=== PATIENT | female | born 1995 | race Two or more races ===

== ENCOUNTER 2023-09-09 13:37 | Inpatient (IN) | payer BC ==
[2023-09-09] MEDS ORDERED: Ondansetron PF 4 MG/2 ML Vial ONE (13:42)
[2023-09-09 14:46] LABS: #Eosinphils 0.1 thou/uL (0.0-0.7); #Monocytes 0.5 thou/uL (0.11-0.59); #Neutrophils 3.8 thou/uL (1.40-6.50); %Basophils 0.4 % (0.0-1.0); %Eosinophils 0.7 % (0.0-10.0); %Lymphocytes 39.6 % (21.0-51.0); %Monocytes 6.3 % (0.0-10.0); %Neutrophils 52.7 % (42.0-75.0); Hematocrit 40.3 % (36.0-47.0); Hemoglobin 13.6 g/dL (12.0-16.0); Mean Corpuscular HGB CONC 33.7 g/dL (32.0-36.0); Mean Corpuscular Hemoglobin 31.3 pg (27.0-31.0); Mean Corpuscular Volume 92.6 fl (78.0-98.0); Mean Platelet Volume 9.9 fL (7.4-10.4); Platelet Count 282 10x3/uL (130-400); Red Blood Cell (RBC) Count 4.35 mill/uL (4.20-5.40); White Blood Cell (WBC) Count 7.1 10x3/uL (4.8-10.8)
[2023-09-09 15:19] LABS: ALT (SGPT) 10 U/L (8-55); AST (SGOT) 13 U/L (5-34); Albumin 4.5 g/dL (3.5-5.0); Alkaline Phosphatase 43 U/L (40-110); Anion Gap 19 mmol/L (10-20); BUN (Urea Nitrogen) 11 mg/dL (7.0-18.7); Bilirubin, Total 0.3 mg/dL (0.2-1.2); Calc. Creatinine Clearance 0 mL/min (70-130); Calcium 8.9 mg/dL (7.8-10.44); Carbon Dioxide 18 mmol/L (22-29); Chloride 105 mmol/L (98-107); Estimated GFR 103; Globulin 2.7 g/dL (2.4-3.5); Glucose 96 mg/dL (70-105); Potassium 3.6 mmol/L (3.5-5.1); Protein, Total 7.2 g/dL (6.0-8.3); Sodium 138 mmol/L (136-145)
[2023-09-09] MEDS ORDERED: Lidocaine 1% PF 5 ML VIAL ONE (15:26)
[2023-09-09] MEDS ORDERED: Boostrix 0.5 ML (Tdap) VIAL (>/=7 yrs of age) ONE (15:26)
[2023-09-09 15:51] LABS: BHCG - Serum Negative (NEGATIVE); Pregs Control Background? CLEAR/WHITE (CLR/WHITE); Pregs Control Bar Appear? YES (CONTROL BAR)
[2023-09-09 15:53] LABS: Troponin I Less than 0.010 ng/mL (< 0.028)
[2023-09-09] MEDS ORDERED: HYDROcodone/Acetaminophen 5/325 mg Tablet PO PRN (17:09)
[2023-09-09] MEDS ORDERED: Ondansetron PF 4 MG/2 ML Vial IVP PRN (17:09)
[2023-09-09] MEDS ORDERED: HYDROcodone/Acetaminophen 7.5/325 mg Tablet PO PRN (17:09)
[2023-09-09] MEDS ORDERED: Lorazepam 2 MG/ML VIAL SLOW IVP PRN (17:09)
[2023-09-09] MEDS ORDERED: Acetaminophen 325 MG TAB PO PRN (17:09)
[2023-09-09 18:04] LABS: Bacteria/HPF None Seen HPF (None Seen); Bilirubin Negative (Negative); Blood, Urine Negative (Negative); CAUTI Indications for Culture Alt mental st,lethar; Clarity Clear (Clear); Glucose, Urine (Dipstick) Normal (Negative); Ketone, Urine 20 mg/dL (Negative); Leukocyte Negative Leu/uL (Negative); Nitrite Negative (Negative); Protein, Urine (Dipstick) 30 mg/dL (Neg-Trace); RBC/HPF None Seen HPF (0-3); Squamous Epithelial None Seen HPF (0-3); Urobilinogen Normal mg/dL (Less than 2); WBC/HPF 0-3 HPF (0-3); pH, Urine 5.5 (5.0-9.0)
[2023-09-09 18:09] LABS: Urine Culture Reflex No No
[2023-09-09 18:13] LABS: Amphetamine Not Detected (NotDetected); Barbiturates Screen Not Detected (NotDetected); Benzodiazepine Screen Not Detected (NotDetected); Cocaine Metabolite Screen Not Detected (NotDetected); Methadone Not Detected (NotDetected); Methamphetamine Not Detected (NotDetected); Opiate Screen Not Detected (NotDetected); Oxycodone Screen Not Detected (NotDetected); Phencyclidine (PCP) Not Detected (NotDetected); THC/Cannabinoid Screen Not Detected (NotDetected); Tricyclic Screen Not Detected (NotDetected)
[2023-09-09] MEDS: Sodium Chloride 0.9% 1,000 ML IV SCH (19:10)
[2023-09-09] MEDS ORDERED: levETIRAcetam 500 MG/5 ML VIAL SLOW IVP SCH (19:45)
[2023-09-09 20:43] VITALS: BMI 20.2
[2023-09-10] MEDS: Sodium Chloride 0.9% 1,000 ML IV SCH (04:27)
[2023-09-10 04:44] LABS: #Eosinphils 0.1 thou/uL (0.0-0.7); #Monocytes 0.8 thou/uL (0.11-0.59); %Basophils 0.2 % (0.0-1.0); %Eosinophils 0.6 % (0.0-10.0); %Lymphocytes 23.8 % (21.0-51.0); %Monocytes 7.6 % (0.0-10.0); %Neutrophils 67.6 % (42.0-75.0); Hematocrit 34.6 % (36.0-47.0); Hemoglobin 11.7 g/dL (12.0-16.0); Mean Corpuscular HGB CONC 33.8 g/dL (32.0-36.0); Mean Corpuscular Hemoglobin 31.8 pg (27.0-31.0); Mean Platelet Volume 9.5 fL (7.4-10.4); Platelet Count 232 10x3/uL (130-400); RBC Distribution Width 13.2 % (11.5-14.5); Red Blood Cell (RBC) Count 3.68 mill/uL (4.20-5.40); White Blood Cell (WBC) Count 10.3 10x3/uL (4.8-10.8)
[2023-09-10 06:43] LABS: ALT (SGPT) 10 U/L (8-55); AST (SGOT) 25 U/L (5-34); Albumin 3.7 g/dL (3.5-5.0); Alkaline Phosphatase 37 U/L (40-110); Anion Gap 14 mmol/L (10-20); BUN (Urea Nitrogen) 10 mg/dL (7.0-18.7); Bilirubin, Total 0.5 mg/dL (0.2-1.2); Calc. Creatinine Clearance 72 mL/min (70-130); Calcium 8.2 mg/dL (7.8-10.44); Carbon Dioxide 20 mmol/L (22-29); Chloride 108 mmol/L (98-107); Estimated GFR 94; Globulin 2.3 g/dL (2.4-3.5); Glucose 122 mg/dL (70-105); Potassium 3.9 mmol/L (3.5-5.1); Sodium 138 mmol/L (136-145)
[2023-09-10] MEDS ORDERED: Magnevist 469MG/ML 20 ML VIAL ONE (09:30)
[2023-09-10] MEDS: Sertraline 100 MG TAB PO SCH (09:56)
[2023-09-10] MEDS: levETIRAcetam 500 MG TAB PO SCH ×2 (09:56→20:51)
[2023-09-10] MEDS ORDERED: Sodium Chloride 0.9% 500 ML IV SCH (17:45)
[2023-09-11] MEDS: Sodium Chloride 0.9% 1,000 ML IV SCH (01:29)
[2023-09-11 08:10] VITALS: BP 108/71; TEMP 98.2
[2023-09-11] MEDS: Sertraline 100 MG TAB PO SCH (09:23)
[2023-09-11] MEDS: levETIRAcetam 500 MG TAB PO SCH (09:23)
== END 2023-09-11 12:00 | disposition home or self-care (01) | DRG 101 ==
LOC: ERS 13:37 → 2SE 17:09 → OBSVTOIN 09-11 09:18
PROVIDERS: ADMIT Family Medicine; ATTEND Nurse Practitioner Acute Care
PROC: 4A00X4Z Measurement of Central Nervous Electrical Activity, External Approach (ICD-10-PCS; principal; 2023-09-10)
DX: R56.9 Unspecified convulsions (principal); I95.1 Orthostatic hypotension; S01.01XA Laceration without foreign body of scalp, initial encounter; F41.9 Anxiety disorder, unspecified; Z79.899 Other long term (current) drug therapy; W19.XXXA Unspecified fall, initial encounter
CPT/HCPCS: 36415; 36416; 70450; 70553; 71045; 72125; 80053; 80306; 81001; 83735; 84146; 84443; 84484; 84703; 85025; 90715; 93005; 93010; 95711; 95819; 96374; A9579; G0378; J1953; J2405; J7030; J7050